=== PATIENT | male | born 1965 | race Caucasian/White ===

== ENCOUNTER 2018-06-01 11:55 | Emergency (ER) | payer MEDICAID ==
[~2018-06-01] VITALS: Ht 165.1 cm; Wt 72.6 kg
[2018-06-01 12:23] VITALS: BP 135/73; Ht 165.1 cm; Wt 72.6 kg
== END 2018-06-01 14:45 | disposition home or self-care (01) ==
LOC: ED 11:55
DX: M75.31 Calcific tendinitis of right shoulder (principal); Z90.89 Acquired absence of other organs; Z98.890 Other specified postprocedural states